=== PATIENT | male | born 1975 | race African-American/Black ===

== ENCOUNTER 2021-03-10 11:57 | Emergency (ER) | payer SELFPAY ==
[~2021-03-10] VITALS: Ht 193 cm; Wt 109.0 kg
[2021-03-10] MEDS ORDERED: KETOROLAC 60MG/2ML VIAL IM ONE (13:15)
[2021-03-10] MEDS ORDERED: PROCHLORPERAZINE MALEATE 10MG TABLET PO ONE (13:15)
[2021-03-10] MEDS ORDERED: IBUP-2029 MT (14:54)
[2021-03-10 15:00] VITALS: BP 145/88
== END 2021-03-10 15:05 | disposition home or self-care (01) ==
LOC: ER 12:24
DX: R51.9 Headache, unspecified (principal)
CPT/HCPCS: 96372; 99283; J1885; Q0164